=== PATIENT | male | born 1950 | race Caucasian/White ===

== ENCOUNTER 2018-11-08 16:16 | Inpatient (IN) | payer OTHER ==
[~2018-11-08] VITALS: Ht 175.3 cm; Wt 105.0 kg
[2018-11-08 16:17] VITALS: BP 140/73
[2018-11-08] MEDS ORDERED: IMIPRAMINE HCL25 MG PO (16:25)
[2018-11-08] MEDS ORDERED: LOSARTAN-HCTZ1 EAC3 PO (16:25)
[2018-11-08 17:06] LABS: APTT 26.7 Seconds (24.5-32.8); PROTIME 10.3 Seconds (9.3-11.4)
[2018-11-08 17:24] LABS: ABSOLUTE NEUTROPHILS 3.9 thou/uL (1.4-8.2); BASOPHILS 0.6 % (0.0-2.0); EOSINOPHILS 1.4 % (0.0-3.0); HEMATOCRIT 45.1 % (42.0-52.0); HEMOGLOBIN 15.7 gm/dL (14.0-18.0); LYMPHOCYTES 25.6 % (24.0-44.0); MCH 30.4 pg (26.0-34.0); MCHC 34.8 g/dL (28.0-37.0); MCV 87.2 fL (80.0-100.0); MONOCYTES 7.1 % (1.0-8.0); PLATELET COUNT 192 thou/uL (150-400); POLYS 65.3 % (36.0-66.0); RBC 5.18 mil/uL (4.50-6.00); RDW 13.2 % (10.5-14.5); WBC 5.9 thou/uL (4.0-11.0)
[2018-11-08 21:47] VITALS: BP 129/73
[2018-11-08 22:08] LABS: URINE BILIRUBIN NEGATIVE (Negative); URINE BLOOD NEGATIVE (Negative); URINE CLARITY CLEAR; URINE COLOR YELLOW; URINE GLUCOSE-RANDOM* NEGATIVE (Negative); URINE KETONES 2+ (Negative); URINE LEUKOCYTES NEGATIVE (Negative); URINE NITRITE NEGATIVE (Negative); URINE PROTEIN (DIPSTICK) NEGATIVE (Negative); URINE UROBILINOGEN 0.2 E.U./dl (0.2-1.0)
[2018-11-08 22:24] VITALS: BP 138/76
[2018-11-08 22:31] VITALS: BP 117/65
[2018-11-08 22:36] LABS: AMP/METHAMP Negative (Negative); BARBITURATES Negative (Negative); BENZODIAZEPINES Negative (Negative); COCAINE Negative (Negative); METHADONE Negative (Negative); OPIATES Negative (Negative); PCP Negative (Negative)
--- NOTE | 2018-11-09 00:29 | NUR ---
Pt arrived on unit approx 2044. Pt is alert but forgetful about details of the today. Anxious and frustrated that he has short term memory loss. Spouse at bedside. Admission assessment, education, and history completed. MRI of the head w/o contrast will be completed in the am. Went through MRI checklist with pt and spouse and faxed down. Spouse is also dpoa. Spouse states pt has had prostate surgery in the past and sometimes has some urinary incontinence and wears briefs at home. Will continue to monitor and assist with needs.
[2018-11-09 04:21] VITALS: BP 112/68
[2018-11-09 05:46] LABS: MCH 30.5 pg (26.0-34.0); MCHC 34.1 g/dL (28.0-37.0); MCV 89.5 fL (80.0-100.0); RBC 4.91 mil/uL (4.50-6.00); RDW 13.5 % (10.5-14.5); WBC 4.8 thou/uL (4.0-11.0)
[2018-11-09 06:03] LABS: CALCIUM 8.3 mg/dL (8.5-10.1); CREATININE 1.1 mg/dL (0.7-1.3); POTASSIUM 3.4 mmol/L (3.5-5.1)
[2018-11-09 07:38] VITALS: BP 120/70
--- NOTE | 2018-11-09 14:21 | 2DMMODE ---
[facility] [address] [employer] [place] [address] 2 D/M-MODE ECHOCARDIOGRAM Name: JEAN PAUL GALLARDO Room #: 451-P [facility] IN ..#: [id number] ������������� Admission: 11/08/18 ������������� Attend Phys: Baylee Baker MD Discharge: ��� ������������� ��� Date of : 48 Date of Service: 11/09/18 1421 �� Report #: [id number] �������� ��������������������������������������������[id number] THIS REPORT FOR: //name// APPROVED REPORT Study performed: 11/09/2018 12:43:59 EXAM: Comprehensive 2D, Doppler, and color-flow Echocardiogram Patient Location: Echo lab Room #: [facility] Status: routine BSA: 2.20 HR: 63 bpm BP: 120/70 mmHg Rhythm: NSR Other Information Study Quality: Adequate Indications Hypertension/HDD Amnesia 2D Dimensions RVDd: 36.68 mm IVSd: 10.29 (7-11mm) LVOT Diam: 20.22 (18-24mm) LVDd: 40.77 mm PWd: 10.76 (7-11mm) Ascending Ao: 25.91 (22-36mm) LVDs: 28.99 (25-40mm) Aortic Root: 31.14 mm IVC: 20.00 mm Volumes Left Atrial Volume (Systole) Single Plane 4CH: 37.47 mL Single Plane 2CH: 27.05 mL LA ESV Index: 16.00 mL/m2 Aortic Valve AoV Peak Elijah.: 1.42 m/s AO Peak Gr.: 8.01 mmHg LVOT Max P.22 mmHg LVOT Max V: 1.03 m/s BRANDON Vmax: 2.33 cm2 Mitral Valve E/A Ratio: 0.8 MV Decel. Time: 209.59 ms [facility] [address] [address] 2 D/M-MODE ECHOCARDIOGRAM Name: JEAN PAUL GALLARDO Room #: 451-P [facility] IN [facility]#: [id number] ������������� Admission: 11/08/18 ������������� Attend Phys: Baylee Baker MD Discharge: ��� ������������� ��� Date of : 48 Date of Service: 11/09/18 1421 �� Report #: [id number] �������� ��������������������������������������������[id number] MV E Max Elijah.: 0.66 m/s MV A Elijah.: 0.81 m/s MV PHT: 60.78 ms IVRT: 124.57 ms Pulmonary Valve PV Peak Elijah.: 1.07 m/s PV Peak Gr.: 4.61 mmHg Pulmonary Vein P Vein S: 0.75 m/s P Vein A: 0.47 m/s P Vein D: 0.71 m/s P Vein A Dur.: 115.3 msec P Vein S/D Ratio: 1.06 Tricuspid Valve TR Peak Elijah.: 3.12 m/s TR Peak Gr.: 38.88 mmHg PA Pressure: 49.00 mmHg Left Ventricle The left ventricle is normal size. There is normal LV segmental wall motion. There is normal left ventricular wall thickness. The left ventricular systolic function is normal. The left ventricular ejection fraction is within the normal range. LVEF is 55-60%. Grade I - abnormal relaxation pattern. Right Ventricle The right ventricle is normal size. The right ventricular systolic function is normal. Atria The left atrium size is normal. The right atrium size is normal. Aortic Valve The aortic valve is normal in structure. No aortic regurgitation is present. There is no aortic valvular stenosis. Mitral Valve The mitral valve is normal in structure. Trace mitral regurgitation. No evidence of mitral valve stenosis. Tricuspid Valve The tricuspid valve is normal in structure. There is trace tricuspid regurgitation. Estimated PAP 49 mmHg. There is moderate pulmonary hypertension. [address] [address] 2 D/M-MODE ECHOCARDIOGRAM Name: JEAN PAUL GALLARDO Room #: 451-P [facility] IN ..#: [id number] ������������� Admission: 11/08/18 ������������� Attend Phys: Baylee Baker MD Discharge: ��� ������������� ��� Date of : 48 Date of Service: 11/09/18 1421 �� Report #: [id number] �������� ��������������������������������������������[id number] Pulmonic Valve The pulmonary valve is normal in structure. There is no pulmonic valvular regurgitation. Great Vessels The aortic root is normal in size. IVC is dilated and collapses >50% with inspiration. Pericardium There is no pericardial effusion. <Conclusion> The left ventricle is normal size. There is normal left ventricular wall thickness. The left ventricular systolic function is normal. Grade I - abnormal relaxation pattern. The right ventricle is normal size. The left atrium size is normal. The aortic valve is normal in structure. Trace mitral regurgitation. There is trace tricuspid regurgitation. Estimated PAP 49 mmHg. ��������������������������������������������� <ELECTRONICALLY SIGNED> ���������������������������������������� By: Tim Lucero MD ��������������������������������������������� 11/09/18 1421 [id number] Tim Lucero MD /INF
[2018-11-09 15:10] VITALS: BP 120/70
--- NOTE | 2018-11-09 16:29 | NUR ---
Assumed pt care this am, MRI, echo and US cartoid hs been done. Relayed relsults to Dr. Baker. Pt is up at janak and was able to ambulate to the toilet with ease, gait is steady. No issues or complaints verbalized by the pt. is at the bed side. DC orders have been given, instructions given to pt and . IV line removed. PT is now dc.
--- NOTE | 2018-11-09 16:59 | EKG ---
[address] [place] [address] ELECTROCARDIOGRAM REPORT Name: SAMIJEAN PAUL Room #: 451-P [facility] IN M.R.#: [id number] ������������������ Admission: 11/08/18 ������������������ Attend Phys: Baylee Baker MD Discharge: 11/09/18 ������������������ Date of : 48 Report #: [id number] ����������������������������������������������������������������� [id number] THIS REPORT FOR: //name// [facility] ED Test Date: 2018-11-08 Test Time: 16:49:49 Pat Name: JEAN PAUL GALLARDO Department: Room: [facility] Gender: M [employer]: [place] : 1950 Requested By: Caron Hicks Order Number: [id number] MD: Dilip Prajapati Measurements Intervals [place] Rate: 74 P: 30 FL: 130 QRS: -10 QRSD: 108 T: 4 QT: 421 QTc: 467 Interpretive Statements Sinus rhythm Normal tracing No previous ECG available for comparison Electronically Signed On 11-09-2018 16:59:09 CDT by Dilip Prajapati [email or web address] ��������������������������������������������� <ELECTRONICALLY SIGNED> ���������������������������������������� By: Dilip Prajapati MD, [facility] ��������������������������������������������� 11/09/18 1659 [id number] [id number] Dilip Prajapati MD, FACC /EPI
--- NOTE | 2018-11-10 10:54 | HC ---
[facility] [place] [address] CONSULTATION Name: JEAN PAUL GALLARDO Bridgette Room #: 451-P [facility] IN ..#: [id number] Admission: 11/08/18 ������������������ Attend Phys: Baylee Baker MD Discharge: 11/09/18 ������������������ Date of : 48 Report #: [id number] THIS REPORT FOR: //name// CC: Spike Baker MD HISTORY OF PRESENT ILLNESS: The patient is a 67-year-old male who yesterday, gradually became confused as the day wore on. His gave me a detailed history until we came to the Emergency Room. By the time he got to the Emergency Room, he began to repeat himself. His states that by 5:00 a.m. this morning, he had returned to his baseline. The patient has never had an episode like this. The patient and his , mostly his was concerned because his mother had had a subarachnoid hemorrhage. However, she examined him as best as she could and saw nothing abnormal. It was only his thinking that was abnormal. She looked at his face, she watched him walk and could see nothing unusual. 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 She googled it and went to the [facility] website; on the website it states that stress can cause this. Apparently, the patient has been under significant stress over the past few years. PAST MEDICAL HISTORY: Colon cancer, hypertension. PAST SURGICAL HISTORY: Noncontributory. MEDICATIONS AT HOME: imipramine 25 mg daily, losartan/hydrochlorothiazide 100 mg/25 mg daily. ALLERGIES TO MEDICATIONS: None. PHYSICAL EXAMINATION: VITAL SIGNS: Temperature is 36.7, pulse rate 63, respiratory rate 20, blood pressure 120/70, bedside pulse oximetry 95% on room air. LABORATORY DATA: Hematology: White blood cell count 4.8, hemoglobin 15, hematocrit 44, MCV 89.5, platelet count 189,000. Coagulation studies normal. Urinalysis, ketones 2+. Chemistry: Sodium 138, potassium 3.4, chloride 102, carbon dioxide 27, BUN 18, creatinine 1.1, glucose 110, calcium 8.3. TSH 1.244. Vitamin D level pending. Toxicology screen negative. IMAGING STUDIES: MRI of the head demonstrates no acute intracranial process. NEUROLOGIC EXAMINATION: Cranial nerves 2-12 are grossly intact. Motor exam demonstrates symmetrical strength in all 4 extremities with tone and bulk [address] [address] CONSULTATION Name: JEAN PAUL GALLARDO Bridgette Room #: 451-P [facility] IN [facility]#: [id number] Admission: 11/08/18 ������������������ Attend Phys: Baylee Baker MD Discharge: 11/09/18 ������������������ Date of : 48 Report #: [id number] normal. Reflexes are unremarkable. Coordination demonstrates intact [id number]. 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 The patient's has already done research on this, so she knows that it is unlikely to happen the second time. The patient does have carotid ultrasound and echocardiogram pending. Even if something were not to be found on these studies, it would not be the cause for this event. I did speak to the patient about stress reduction and suggested that he discuss his stress with his family or perhaps seek professional help if it continues to be an issue. I thank you for your kind referral of the patient. ��������������������������������������������� <ELECTRONICALLY SIGNED> ���������������������������������������� By: Salma Pimentel DO ��������������������������������������������� 11/10/18 1054 1152 2219 Salma Pimentel DO /nt
== END 2018-11-09 16:49 | disposition home or self-care (01) | DRG 72 ==
LOC: ER 16:16 → EROBS 17:44 → 4W 17:44 → ENTRNSPT 11-09 15:39 → EDTRNSPTSTS 11-09 15:42 → 4W 11-09 16:49
PROVIDERS: Emergency Medicine; ADMIT Internal Medicine
DX: G45.4 Transient global amnesia (principal); I10 Essential (primary) hypertension; Z79.899 Other long term (current) drug therapy; Z85.038 Personal history of other malignant neoplasm of large intestine
CPT/HCPCS: 10045